=== PATIENT | female | born 1995 | race Caucasian/White ===

== ENCOUNTER 2020-10-01 01:26 | Emergency (ER) | payer OTHER ==
[~2020-10-01] VITALS: Ht 160 cm; Wt 50.0 kg
[2020-10-01 02:09] LABS: STREP SCREEN NEGATIVE
[2020-10-01] MEDS ORDERED: CLEOCIN HCL300 MG PO (02:24)
[2020-10-01] MEDS ORDERED: PREDNISONE20 MG PO (02:24)
[2020-10-01 02:45] VITALS: BP 119/74; PULSE 91; TEMP 98.3
== END 2020-10-01 02:45 | disposition home or self-care (01) ==
LOC: COL.ER 01:26
PROVIDERS: Emergency Medicine
DX: J03.90 Acute tonsillitis, unspecified (principal)
CPT/HCPCS: J1100

== ENCOUNTER 2020-10-05 23:55 | Observation (INO) | payer OTHER ==
[~2020-10-05] VITALS: Ht 160 cm; Wt 50.0 kg
[~2020-10-05 23:55] MED LIST: CLEOCIN HCL300 MG PO; PREDNISONE20 MG PO
[2020-10-06] VITALS (7 sets, daily range): BP systolic 111–125; BP diastolic 66–83; PULSE 62–83; TEMP 97.3–98.5
[2020-10-06 01:20] LABS: BASO % 0.1 % (0.0-2.0); EOS % 0.2 % (0-4.0); GRAN # 10.2 (1.4-6.5); GRAN % 70.9 % (42.2-75.2); HEMATOCRIT 38.5 % (37.0-47.0); HEMOGLOBIN 12.7 g/dl (12.5-16.0); LYMPH # 2.7 (1.2-3.4); LYMPH % 18.3 % (20.0-51.0); MEAN CELL VOLUME 90 fl (80.0-100.0); MEAN CORPUSCULAR HEMOGLOBIN 30 pg (27.0-31.0); MEAN CORPUSCULAR HGB CONC 33 g/dl (33.0-37.0); MEAN PLATELET VOLUME 10.2 fl (7.4-10.4); MONO # 1.5 (0.1-0.6); MONO % 10.1 % (1.7-9.3); PLATELET COUNT 248 K/mm3 (130-400); RED BLOOD COUNT 4.28 M/mm3 (4.10-5.30); REDCELL DISTRIBUTION WIDTH-CV 12.3 % (11.5-14.5)
[2020-10-06 01:31] LABS: ALBUMIN 3.9 gm/dL (3.5-5.0); BILIRUBIN,TOTAL 0.6 mg/dL (0.0-1.0); CALCIUM 9.1 mg/dL (8.4-10.2); CREATININE, serum 0.6 (0.52-1.25); POTASSIUM 3.7 mmol/L (3.4-5.0); TOTAL PROTEIN 7.1 gm/dL (6.4-8.2)
--- NOTE | 2020-10-06 09:12 | NUR ---
Pt arrives on unit via wheelchair from ED. Pt rates pain 5/10. Dr. Mckinney attempted for pain meds. LM to CB. VSS. Admission assessment completed. Pt updated on POC. Bed locked in low position. Call light within reach. No questions or concerns at this time.
[2020-10-06] MEDS ORDERED: NORCO 325 MG-51 TAB PO (13:06)
--- NOTE | 2020-10-06 13:45 | NUR ---
Returns from OR per bed. Note patient emotional from coming off of anesthesia on arrival. Patient significant other, Radha, at bedside. Patient denies pain at this time, reports, "I'm just tired."
== END 2020-10-06 15:30 | disposition home or self-care (01) ==
LOC: COL.ER 23:55 → OB 10-06 08:08
PROVIDERS: Personal Emergency Response Attendant; ADMIT Otolaryngology
DX: J36 Peritonsillar abscess (principal); K58.9 Irritable bowel syndrome, unspecified; Z79.899 Other long term (current) drug therapy
CPT/HCPCS: G0378; J0330; J0696; J1100; J1170; J2060; J2250; J2270; J2405; J2704; J2930; J3010; J7120; Q9967